=== PATIENT | female | born 1950 | race Caucasian/White ===

== ENCOUNTER 2022-04-05 20:54 | Inpatient (IN) | payer MEDICARE, BC ==
[2022-04-05] MEDS ORDERED: methylPREDNISolone Sodium Succinate 125 MG/2 ML SDV IVPUSH ONE (21:54)
[2022-04-05] MEDS ORDERED: Albuterol/Ipratropium 3.0-0.5 MG/3 ML Neb Soln NEB ONE (21:54)
[2022-04-06 00:18] LABS: ANION GAP 13.9 mmol/L (5-15); CHLORIDE,CL 107 mmol/L (98-107); ESTIMATED GFR 88 mL/min (>=60); SODIUM,NA 143 mmol/L (136-145)
[2022-04-06] MEDS ORDERED: Azithromycin 250 MG Tab PO ONE (00:34)
[2022-04-06] MEDS: Albuterol/Ipratropium 3.0-0.5 MG/3 ML Neb Soln NEB SCH ×7 (02:30→20:39)
[2022-04-06] MEDS: cefTRIAXone 1 GM Vial IVPUSH SCH (11:10)
[2022-04-06] MEDS: Enoxaparin 40 MG/0.4 ML Syringe SUBCUT SCH (11:10)
[2022-04-06] MEDS: Metoprolol Tartrate 25 MG Tab PO SCH ×2 (11:11→20:39)
[2022-04-06] MEDS: guaiFENesin 600 MG Tab.ER PO SCH ×2 (11:11→20:40)
[2022-04-06] MEDS: methylPREDNISolone Sodium Succinate 125 MG/2 ML SDV IVPUSH SCH ×2 (11:11→21:47)
[2022-04-06] MEDS: Lisinopril 10 MG Tab PO SCH (11:11)
[2022-04-06] MEDS: guaiFENesin/Dextromethorphan 100-10 MG/5 ML Soln 5 ML Cup PO PRN ×3 (11:22→22:12)
[2022-04-06] MEDS ORDERED: Ondansetron 4 MG/2 ML SDV IVPUSH PRN (15:32)
[2022-04-06] MEDS: atorvaSTATin 40 MG Tab PO SCH (20:40)
[2022-04-06] MEDS: Azithromycin 250 MG Tab PO SCH (21:48)
[2022-04-07] MEDS: Albuterol/Ipratropium 3.0-0.5 MG/3 ML Neb Soln NEB SCH ×6 (01:02→20:03)
[2022-04-07] MEDS: guaiFENesin/Dextromethorphan 100-10 MG/5 ML Soln 5 ML Cup PO PRN ×2 (02:18→06:25)
[2022-04-07] MEDS: Pantoprazole 20 MG Tab, Delayed Release PO SCH ×2 (05:34→06:40)
[2022-04-07 08:26] LABS: ANION GAP 12.8 mmol/L (5-15)
[2022-04-07] MEDS: predniSONE 10 MG Tab PO SCH (08:32)
[2022-04-07] MEDS: guaiFENesin 600 MG Tab.ER PO SCH ×2 (08:32→20:04)
[2022-04-07] MEDS: Metoprolol Tartrate 25 MG Tab PO SCH ×2 (08:32→20:04)
[2022-04-07] MEDS: Lisinopril 10 MG Tab PO SCH (08:32)
[2022-04-07] MEDS: Azithromycin 250 MG Tab PO SCH ×2 (08:32→22:12)
[2022-04-07] MEDS: Enoxaparin 40 MG/0.4 ML Syringe SUBCUT SCH (11:31)
[2022-04-07] MEDS: cefTRIAXone 1 GM Vial IVPUSH SCH (11:31)
[2022-04-07] MEDS ORDERED: Bisacodyl 5 MG Tab PO PRN (18:53)
[2022-04-07] MEDS: atorvaSTATin 40 MG Tab PO SCH (20:04)
[2022-04-08] MEDS: Albuterol/Ipratropium 3.0-0.5 MG/3 ML Neb Soln NEB SCH ×7 (00:06→21:05)
[2022-04-08] MEDS: Pantoprazole 20 MG Tab, Delayed Release PO SCH ×2 (05:37→06:30)
[2022-04-08 07:45] LABS: ANION GAP 11.4 mmol/L (5-15)
[2022-04-08] MEDS: predniSONE 10 MG Tab PO SCH (09:18)
[2022-04-08] MEDS: Lisinopril 10 MG Tab PO SCH (09:18)
[2022-04-08] MEDS: Metoprolol Tartrate 25 MG Tab PO SCH ×2 (09:18→21:06)
[2022-04-08] MEDS: guaiFENesin 600 MG Tab.ER PO SCH ×2 (09:18→21:06)
[2022-04-08] MEDS: cefTRIAXone 1 GM Vial IVPUSH SCH (09:29)
[2022-04-08] MEDS ORDERED: Sodium Chloride 0.65% Nasal Spray 45 ML Bottle NAS PRN (11:39)
[2022-04-08] MEDS: Enoxaparin 40 MG/0.4 ML Syringe SUBCUT SCH (12:31)
[2022-04-08] MEDS: buPROPion 150 MG Tab.ER PO SCH (13:29)
[2022-04-08] MEDS: Azithromycin 250 MG Tab PO SCH (13:29)
[2022-04-08] MEDS: Fluticasone NASAL Spray 16 GM Bottle NASBOTH SCH ×2 (13:30→21:05)
[2022-04-08] MEDS: atorvaSTATin 40 MG Tab PO SCH (21:06)
[2022-04-09] MEDS: Albuterol/Ipratropium 3.0-0.5 MG/3 ML Neb Soln NEB SCH ×3 (00:38→09:37)
[2022-04-09] MEDS: Pantoprazole 20 MG Tab, Delayed Release PO SCH ×2 (05:01→06:30)
[2022-04-09 07:43] LABS: ANION GAP 10.1 mmol/L (5-15)
[2022-04-09] MEDS: guaiFENesin 600 MG Tab.ER PO SCH (09:33)
[2022-04-09] MEDS: buPROPion 150 MG Tab.ER PO SCH (09:33)
[2022-04-09] MEDS: predniSONE 10 MG Tab PO SCH (09:33)
[2022-04-09] MEDS: Lisinopril 10 MG Tab PO SCH (09:34)
[2022-04-09] MEDS: cefTRIAXone 1 GM Vial IVPUSH SCH (09:35)
[2022-04-09] MEDS: Metoprolol Tartrate 25 MG Tab PO SCH (09:35)
[2022-04-09] MEDS: Fluticasone NASAL Spray 16 GM Bottle NASBOTH SCH (09:35)
[2022-04-09] MEDS ORDERED: Potassium Chloride 10 MEQ Tab.ER PO ONE (10:14)
[2022-04-09] MEDS: Azithromycin 250 MG Tab PO SCH (11:04)
== END 2022-04-09 11:37 | disposition home or self-care (01) | DRG 189 ==
LOC: KA.ED 20:54 → KA.MS 23:38 → UNDOADMIN 04-06 00:25 → KA.MS 04-06 00:25
PROVIDERS: ADMIT Student in an Organized Health Care Education/Training Program; ATTEND Family Medicine
DX: J96.01 Acute respiratory failure with hypoxia (principal); J20.9 Acute bronchitis, unspecified; I10 Essential (primary) hypertension; J44.1 Chronic obstructive pulmonary disease with (acute) exacerbation; E78.5 Hyperlipidemia, unspecified; Z80.3 Family history of malignant neoplasm of breast; Z90.89 Acquired absence of other organs; Z98.890 Other specified postprocedural states; Z90.710 Acquired absence of both cervix and uterus; Z90.722 Acquired absence of ovaries, bilateral; Z79.899 Other long term (current) drug therapy; Z79.52 Long term (current) use of systemic steroids; Z88.0 Allergy status to penicillin; Z88.8 Allergy status to other drugs, medicaments and biological substances; Z98.51 Tubal ligation status; R09.02 Hypoxemia; F17.210 Nicotine dependence, cigarettes, uncomplicated
CPT/HCPCS: 36415; 71046; 80053; 83605; 83735; 84484; 85025; 85379; 86140; 87040; 94640; 96374; 99284; 99285-25; A9270-GY; J0696; J1650; J2405; J2930; J7512; J7620-GY